=== PATIENT | female | born 1995 | race Hispanic/Latino ===

== ENCOUNTER 2016-12-17 09:47 | Emergency (ER) | payer SELFPAY ==
[2016-12-17] MEDS ORDERED: Ketorolac Tromethamine 30 MG/ML VIAL ONE (11:12)
--- NOTE | 2016-12-17 11:27 | RAD ---
RIGHT ANKLE 3 VIEWS: Date: 12/17/16 HISTORY: 21-year-old female with right ankle pain after falling down stairs. IMPRESSION: No fracture, dislocation, or other significant acute osseous abnormality. POS: [facility]
--- NOTE | 2016-12-17 11:30 | RAD ---
AP PELVIS 1 VIEW: Date: 12/17/16 HISTORY: 21-year-old female with pelvic pain following an injury obtained while falling down stairs. IMPRESSION: No fracture, dislocation, or other significant acute osseous abnormality. POS: [facility]
--- NOTE | 2016-12-17 11:32 | RAD ---
4 VIEWS RIGHT KNEE: Date: 12/17/16 HISTORY: Patient fell down stairs and has bilateral knee, back, and left elbow pain. FINDINGS: There is a lucency seen in the anterior subcutaneous soft tissues suggesting laceration. No radiopaq ue foreign body is seen. There is no evidence of a fracture or dislocation involving the right knee. No joint space narrowing is seen. There is a small joint effusion. IMPRESSION: 1. Laceration anterior subcutaneous soft tissues at the level of the proximal tibia. There is no ra diopaque foreign body. 2. No fracture or dislocation. 3. Suggestion of small joint effusion. POS: [facility]
[2016-12-17] MEDS ORDERED: Lidocaine 1% PF 5 ML VIAL ONE (12:39)
== END 2016-12-17 13:47 | disposition home or self-care (01) ==
LOC: ERS 09:47
DX: S81.011A Laceration without foreign body, right knee, initial encounter (principal); S93.401A Sprain of unspecified ligament of right ankle, initial encounter; S80.212A Abrasion, left knee, initial encounter; M25.522 Pain in left elbow; Z23 Encounter for immunization; W10.9XXA Fall (on) (from) unspecified stairs and steps, initial encounter
CPT/HCPCS: 12005; 72170; 90471; 96374; J1885; J2001